=== PATIENT | male | born 2000 | race Caucasian/White ===

== ENCOUNTER 2023-03-31 00:04 | Emergency (ER) | payer MEDICAID ==
[~2023-03-31] VITALS: Ht 167.6 cm; Wt 61.2 kg
[2023-03-31 00:12] VITALS: BP_SYST 139; PULSE 94; RESP 14; TEMP 99.4; O2SAT 99
== END 2023-03-31 01:45 | disposition home or self-care (01) ==
LOC: SED 00:04
DX: F12.90 Cannabis use, unspecified, uncomplicated (principal); R63.2 Polyphagia; Z79.899 Other long term (current) drug therapy
CPT/HCPCS: 99281